=== PATIENT | male | born 1940 | race Caucasian/White ===

== ENCOUNTER 2017-10-10 09:09 | Emergency (ER) | payer MEDICARE, BC ==
[~2017-10-10] VITALS: Ht 172.7 cm; Wt 73.6 kg
[~2017-10-10 09:09] MED LIST: AMARYL4 MG; ASPIRIN 81M81 MG/TA2 PO; COZAAR 25MG25 MG/TAB PO; FLOMAX 0.40.4 MG/CAP PO; GLUCOPHAGE1000 MG PO; NATURE'S BL400 IU/ML PO; NORCO 325 MG-51 TAB PO; PRAVACHOL10 MG PO; PRINIVIL10 MG PO; PROSCAR 5MG5 MG PO; ZYLOPRIM 100MG100 MG PO
[2017-10-10 09:14] VITALS: BP 155/72; TEMP 98.3
[2017-10-10] MEDS ORDERED: GLUCOTROL 5M5 MG/TAB PO (09:47)
[2017-10-10 10:48] VITALS: PULSE 81
== END 2017-10-10 10:49 | disposition home or self-care (01) ==
LOC: COL.ER 09:09
DX: S09.90XA Unspecified injury of head, initial encounter (principal); S20.212A Contusion of left front wall of thorax, initial encounter; S00.03XA Contusion of scalp, initial encounter; S50.02XA Contusion of left elbow, initial encounter; M70.32 Other bursitis of elbow, left elbow; E78.5 Hyperlipidemia, unspecified; E11.9 Type 2 diabetes mellitus without complications; I10 Essential (primary) hypertension; Z79.82 Long term (current) use of aspirin; Z79.84 Long term (current) use of oral hypoglycemic drugs; W11.XXXA Fall on and from ladder, initial encounter; Y92.009 Unspecified place in unspecified non-institutional (private) residence as the place of occurrence of the external cause
CPT/HCPCS: A9284

== ENCOUNTER 2022-05-06 11:08 | Emergency (ER) | payer MEDICARE, BC ==
[~2022-05-06] VITALS: Ht 170.2 cm; Wt 73.6 kg
[~2022-05-06 11:08] MED LIST changes: +CIPRO 500MG TA500 MG PO; +GLUCOTROL 5M5 MG/TAB PO; +JARDIANCE25 PO; -NATURE'S BL400 IU/ML PO; +OMNICEF 300MG300 MG PO; +PLAVIX 75MG TAB75 MG PO; +VITAMIN D31000 I1 PO; +ZETIA 10MG TAB10 MG PO
[2022-05-06 11:29] VITALS: TEMP 98.1
[2022-05-06 13:26] VITALS: BP 115/69; PULSE 87
[2022-05-21] MEDS ORDERED: NATURAL POTASS595 MG PO (10:20)
== END 2022-05-06 13:27 | disposition home or self-care (01) ==
LOC: COL.ER 11:08
DX: M79.661 Pain in right lower leg (principal); Z28.310 Unvaccinated for COVID-19; Z91.14 Patient's other noncompliance with medication regimen